=== PATIENT | male | born 1960 | race African-American/Black ===

== ENCOUNTER 2018-08-18 18:38 | Emergency (ER) | payer OTHER ==
[~2018-08-18] VITALS: Ht 188 cm; Wt 99.8 kg
[~2018-08-18 18:38] MED LIST: ALBUPOW26; CARI-277 OR; HYDR-4683 GT
[2018-08-18 20:23] LABS: Urine Bacteria NONE SEEN /hpf (None Seen); Urine Blood 2+ /uL (Negative); Urine Specific Gravity 1.022 (1.001-1.035); Urine WBC 285 /hpf (0 - 3); Urine WBC Clumps PRESENT /hpf (None Seen)
[2018-08-18 22:00] LABS: Basophils # (auto) 0 uL; Basophils % (auto) 0.2 % (0.0-2.0); Eosinophils # (auto) 0.1 uL; Eosinophils % (auto) 0.9 % (0.0-7.0); Hematocrit 38.4 % (41.0-53.0); Hemoglobin 12.5 g/dL (13.5-17.5); Lymphocytes # (auto) 1.3 uL; Lymphocytes % (auto) 12.6 % (10.0-50.0); Mean Corpuscular Hgb Conc. 32.5 g/dL (32.0-36.0); Mean Corpuscular Volume 86.2 fL (80.0-100.0); Monocytes # (auto) 0.7 uL; Monocytes % (auto) 6.4 % (0.0-12.0); Neutrophils # (auto) 8.5 uL; Neutrophils % (auto) 79.9 % (37.0-80.0); Platelet Count (auto) 213 10^3/uL (140-450); Red Blood Cells 4.45 10^6/uL (4.5-5.90); Red Cell Distribution Width 14.9 % (11.8-14.3); White Blood Cell 10.6 10^3/uL (4.4-10.8)
[2018-08-18 22:13] LABS: Potassium 3.7 mmol/L (3.5-5.1)
[2018-08-18 22:21] LABS: Albumin 3.5 g/dL (3.4-5.0); BUN/Creatinine Ratio 8.3; Bilirubin, Total 0.4 mg/dL (0.2-1.0); Calcium 8.9 mg/dL (8.5-10.1); Total Protein 8.6 g/dL (6.4-8.2)
[2018-08-19] MEDS ORDERED: CIPROFLOXACIN HCL 500 MG TAB PO ONE (02:15)
[2018-08-19 02:30] VITALS: BP 119/49
== END 2018-08-19 02:56 | disposition home or self-care (01) ==
LOC: ER 18:38
DX: N39.0 Urinary tract infection, site not specified (principal); N30.90 Cystitis, unspecified without hematuria; J45.909 Unspecified asthma, uncomplicated; I10 Essential (primary) hypertension; F17.210 Nicotine dependence, cigarettes, uncomplicated
CPT/HCPCS: 36415; 74176; 80053; 81001; 85025

== ENCOUNTER 2019-07-04 03:44 | Emergency (ER) | payer SELFPAY ==
[~2019-07-04] VITALS: Ht 188 cm; Wt 90.7 kg
[~2019-07-04 03:44] MED LIST changes: -HYDR-4683 GT; +HYDR-4833 GT
[2019-07-04 04:13] LABS: Urine Bacteria FEW /hpf (None Seen); Urine Blood 2+ /uL (Negative); Urine Mucus FEW (None Seen); Urine WBC 148 /hpf (0 - 3)
[2019-07-04 04:32] VITALS: BP 118/76
[2019-07-04] MEDS ORDERED: cefTRIAXone SOD 1,000 MG VL IM ONE (04:45)
== END 2019-07-04 05:02 | disposition home or self-care (01) ==
LOC: ER 03:46
DX: N39.0 Urinary tract infection, site not specified (principal); R30.0 Dysuria; I10 Essential (primary) hypertension; E78.5 Hyperlipidemia, unspecified; J45.909 Unspecified asthma, uncomplicated; F17.210 Nicotine dependence, cigarettes, uncomplicated; Z79.899 Other long term (current) drug therapy
CPT/HCPCS: 81001; 96372; 99283; J0696

== ENCOUNTER 2020-08-04 06:40 | Emergency (ER) | payer SELFPAY ==
[~2020-08-04] VITALS: Ht 185.4 cm; Wt 90.7 kg
[2020-08-04] MEDS ORDERED: diphenhdrAMINE HCL 25 MG CAP PO ONE (07:00)
[2020-08-04 07:46] VITALS: BP 95/68
[2020-08-04] MEDS ORDERED: methylPREDNISolone SOD SUCC 125 MG/2 ML VL IM ONE (08:45)
== END 2020-08-04 09:32 | disposition home or self-care (01) ==
LOC: ER 06:40
DX: T78.40XA Allergy, unspecified, initial encounter (principal); J45.909 Unspecified asthma, uncomplicated; I10 Essential (primary) hypertension; F17.210 Nicotine dependence, cigarettes, uncomplicated
CPT/HCPCS: 96372; 99283; J2930

== ENCOUNTER 2021-12-28 13:17 | Emergency (ER) | payer BC, MEDICAID, OTHER ==
[~2021-12-28] VITALS: Ht 185.4 cm; Wt 97.0 kg
[2021-12-28 14:10] LABS: Basophils # (auto) 0 10 ^3/uL (0-0.2); Basophils % (auto) 0.5 % (0.0-2.0); Eosinophils # (auto) 0 10 ^3/uL (0-0.8); Eosinophils % (auto) 0.7 % (0.0-7.0); Hemoglobin 12.3 g/dL (13.5-17.5); Lymphocytes # (auto) 0.9 10 ^3/uL (0.4-5.4); Lymphocytes % (auto) 14.8 % (10.0-50.0); Mean Corpuscular Hemoglobin 27.8 pg (28.0-32.0); Mean Corpuscular Hgb Conc. 32.4 g/dL (32.0-36.0); Mean Corpuscular Volume 85.9 fL (80.0-100.0); Monocytes # (auto) 0.6 10 ^3/uL (0-1.3); Monocytes % (auto) 9.5 % (0.0-12.0); Neutrophils # (auto) 4.4 10 ^3/uL (1.6-8.6); Neutrophils % (auto) 74.5 % (37.0-80.0); Nucleated Red Blood Cells % 0.1 %; Red Blood Cells 4.43 10^6/uL (4.5-5.90); Red Cell Distribution Width 14.2 % (11.8-14.3); White Blood Cell 5.9 10^3/uL (4.4-10.8)
[2021-12-28 14:21] LABS: Urine Bacteria NONE SEEN /hpf (None Seen); Urine Blood Negative /uL (Negative); Urine Mucus FEW (None Seen); Urine Specific Gravity 1.026 (1.001-1.035); Urine WBC <1 /hpf (0 - 3)
[2021-12-28 14:40] LABS: Albumin 3.5 g/dL (3.4-5.0); Calcium 9.1 mg/dL (8.5-10.1); Potassium 4.4 mmol/L (3.5-5.1)
[2021-12-28 14:41] LABS: BUN/Creatinine Ratio 9.4
[2021-12-28 14:44] LABS: Bilirubin, Total 0.3 mg/dL (0.2-1.0); Total Protein 7.8 g/dL (6.4-8.2)
[2021-12-28] MEDS ORDERED: METH4PAK PO (16:27)
[2021-12-28] MEDS ORDERED: AZIT1POW PO (16:27)
[2021-12-28 17:20] VITALS: BP 153/73
== END 2021-12-28 17:34 | disposition home or self-care (01) ==
LOC: ER 13:17
DX: J45.909 Unspecified asthma, uncomplicated (principal); E78.5 Hyperlipidemia, unspecified; I10 Essential (primary) hypertension; F17.210 Nicotine dependence, cigarettes, uncomplicated; Z20.822 Contact with and (suspected) exposure to COVID-19
CPT/HCPCS: 36415; 71045; 80053; 81001; 83880; 84484; 85025; 87426; 87804; 93005

== ENCOUNTER 2023-02-22 20:36 | Emergency (ER) | payer MEDICAID ==
[~2023-02-22] VITALS: Ht 185.4 cm; Wt 90.1 kg
[~2023-02-22 20:36] MED LIST changes: +AZIT1POW PO; +METH4PAK PO
[2023-02-22] MEDS ORDERED: ALBUTEROL SULF 2.5 MG/0.5ML(0.5%) NEB SOLN NEB ONE (21:15)
[2023-02-22] MEDS ORDERED: DexAMETHasone SOD PHOS 10MG/1ML VIAL INJ IM ONE (21:15)
[2023-02-22] MEDS ORDERED: IPRATROPIUM BROM 0.5 MG/2.5ML INH SOL NEB ONE (21:15)
[2023-02-22 21:19] LABS: Urine Bacteria NONE SEEN /hpf (None Seen); Urine Blood Negative /uL (Negative); Urine Clarity Clear (Clear); Urine Color Yellow (Yellow); Urine Protein, UAD Negative (Negative); Urine Specific Gravity 1.026 (1.001-1.035); Urine Urobilinogen Normal (Negative); Urine WBC 62 /hpf (0 - 3); Urine pH 5.5 (5.0-8.0)
[2023-02-22 21:56] VITALS: BP 136/38; PULSE 54; RESP 18; TEMP 97.4; O2SAT 96
[2023-02-22] MEDS ORDERED: ALBU108A5 IN (22:26)
[2023-02-22] MEDS ORDERED: TIOTCAP IN (22:26)
[2023-02-22] MEDS ORDERED: levoFLOXacin 250 MG TAB PO ONE (22:30)
[2023-02-22] MEDS ORDERED: LEVO750T8 PO (22:42)
== END 2023-02-22 23:07 | disposition home or self-care (01) ==
LOC: ER 20:36
DX: N39.0 Urinary tract infection, site not specified (principal); J98.4 Other disorders of lung; I10 Essential (primary) hypertension; E78.5 Hyperlipidemia, unspecified; J45.909 Unspecified asthma, uncomplicated; F17.210 Nicotine dependence, cigarettes, uncomplicated; R07.89 Other chest pain
CPT/HCPCS: 71046; 81001; 94640; 96372; 99284; J1100; J7644

== ENCOUNTER 2023-06-22 10:53 | Emergency (ER) | payer MEDICAID ==
[~2023-06-22] VITALS: Ht 185.4 cm; Wt 88.9 kg
[~2023-06-22 10:53] MED LIST changes: +ALBU108A5 IN; +LEVO750T8 PO; +TIOTCAP IN
[2023-06-22 12:09] VITALS: BP 138/61; PULSE 60; RESP 18; TEMP 98; O2SAT 97
[2023-06-22] MEDS: HYDROcodone-ACET 5/325MG TAB PO ONE (12:54)
[2023-06-22] MEDS ORDERED: BACL10TA PO (13:20)
[2023-06-22] MEDS ORDERED: IBUP-1456 PO (13:20)
== END 2023-06-22 13:24 | disposition home or self-care (01) ==
LOC: ER 10:53
DX: S46.912A Strain of unspecified muscle, fascia and tendon at shoulder and upper arm level, left arm, initial encounter (principal); S76.012A Strain of muscle, fascia and tendon of left hip, initial encounter; S00.03XA Contusion of scalp, initial encounter; J45.909 Unspecified asthma, uncomplicated; E78.5 Hyperlipidemia, unspecified; I10 Essential (primary) hypertension; F17.210 Nicotine dependence, cigarettes, uncomplicated; W18.09XA Striking against other object with subsequent fall, initial encounter; Y93.89 Activity, other specified; Y92.89 Other specified places as the place of occurrence of the external cause; Y99.8 Other external cause status
CPT/HCPCS: 70450; 73030; 73502

== ENCOUNTER 2024-12-20 10:22 | Inpatient (IN) | payer MEDICARE, MEDICAID ==
[~2024-12-20] VITALS: Ht 188 cm; Wt 91.4 kg
[~2024-12-20 10:22] MED LIST changes: +BACL10TA PO; +IBUP-1456 PO
[2024-12-20 10:35] VITALS: PULSE 41; RESP 14; O2SAT 100
--- NOTE | 2024-12-20 10:44 | ED.PDOC ---
History of Present Illness HPI Comments 64 y/o M is BIBA for c/c of arrhythmia. Per EMS personnel report, patient's primary care physician office called after finding the patient bradycardic in the 30's range during a prescription albuterol inhaler refill inquiry visit after seeing his dentist, earlier, today. Patient is asymptomatic. He comments on having only dental fillings done on him at aforementioned dental visit. Only significant history for asthma and paternal family history of emphysema and maternal family history of heart disease. No endorsed recent ailments, injuries, sick contacts, substance use, or further pertinent events or history. Time Seen by MD: 10:20 Primary Care Provider: "[facility]" Reviewed Notes: Nurses Notes, High Wire Artist Notes, Medications, Allergies Allergies: Coded Allergies: NO KNOWN ALLERGIES (Unverified , 10/24/10) Home Meds Active Scripts Baclofen (Baclofen) 10 Mg Tab, 10 MG PO BID, #20 TAB Prov:JOHNATHAN SANDERS 06/22/23 Ibuprofen (Ibuprofen) 800 Mg Tab, 1 TAB PO TID, #30 TAB Prov:JOHNATHAN SANDERS 06/22/23 Levofloxacin (Levaquin 750 mg) 750 Mg Tab, 1 TAB PO DAILY for 9 Days, #9 TAB Prov:WILLIE GARRETT PAC 02/22/23 Tiotropium [place] Monohydrate (Spiriva Handihaler) 18 Mcg Cap, 18 MCG IN DAILY, #1 CAP Prov:WILLIE GARRETT PAC 02/22/23 Albuterol Sulfate (Albuterol Sulfate Hfa) 108 Mcg/Act Aer, 108 MCG IN Q4HP PRN, #1 AER Prov:WILLIE GARRETT PAC 02/22/23 Methylprednisolone (Medrol Dosepak) 4 Mg Rush, 4 MG PO UD, #21 TAB UAD Prov:DANIS ANGLIN MD 12/28/21 Azithromycin (Zithromax) 1 Gm Pow, 1 PACK PO ONCE, #1 PACK Prov:DANIS ANGLIN MD 12/28/21 Reported Medications Albuterol (Albuterol) Pow, Q6HR 2 PUFF 03/19/12 Carisoprodol (Soma) 350 Mg Tab, 350 OR 07/24/11 Hydrocodone-Acetaminophen ([place] 5/325MG) 1 Tab Tb, 1 TAB GT 07/24/11 Information Source: Patient, Emergency Med Personnel Mode of Arrival: EMS Severity: Moderate Timing: Hours Duration: Since onset Prehospital treatment: 12 Lead EKG, Cardiac Cath Lab Radiology Technologist Medication Refill: Ran out of Medication (Albuterol ) Past Medical History PAST MEDICAL HISTORY: Asthma Surgical History: Denies all surgeries Family History Family History: Reviewed,noncontributory to illness, No family hx of Cancer, No family hx of DM, No family hx of HTN, No family hx ofKidney ole, No family hx of Liver ole, No family hx of Stroke, Family hx of heart ole, Family hx of lung ole (emphysema) Social History Smoker: Non-Smoker Alcohol: Occasionally Drugs: Denies Drug Use Lives In: Home Constitutional: denies: chills, diaphoresis, fatigue, fever, malaise, sweats, weakness, others EENTM: denies: blurred vision, double vision, ear bleeding, ear discharge, ear drainage, ear pain, ear ringing, eye pain, eye redness, hearing loss, mouth pain, mouth swelling, nasal discharge, nose bleeding, nose congestion, nose pain, photophobia, tearing, throat pain, throat swelling, voice changes, others Respiratory: denies: cough, hemoptysis, orthopnea, SOB at rest, shortness of breath, SOB with excertion, stridor, wheezing, others Cardiovascular: denies: chest pain, dizzy spells, diaphoresis, Dyspnea on exertion, edema, irregular heart beat, left arm pain, lightheadedness, palpitations, PND, syncope, others Gastrointestinal: denies: abdomen distended, abdominal pain, blood streaked bowels, constipated, diarrhea, dysphagia, difficulty swallowing, hematemesis, melena, nausea, poor appetite, poor fluid intake, rectal bleeding, rectal pain, vomiting, others Genitourinary: denies: burning, dysuria, flank pain, frequency, hematuria, incontinence, penile discharge, penile sore, pain, testicle pain, testicle swelling, urgency, others Neurological: denies: dizziness, fainting, headache, left sided numbness, left sided weakness, numbness, paresthesia, pre-existing deficit, right sided numbness, right sided weakness, seizure, speech problems, tingling, tremors, weakness, others Musculoskeletal: denies: back pain, gout, joint pain, joint swelling, muscle pain, muscle stiffness, neck pain, others Integumetry: denies: bruises, change in color, change in hair/nails, dryness, laceration, lesions, lumps, rash, wounds, others Allergic/Immunocompromised: denies: Difficulty Healing, Frequent Infections, Hives, Itching, others Hematologic/Lymphatic: denies: anemia, blood clots, easy bleeding, easy bruising, swollen glands, others Endocrine: denies: excessive hunger, excessive sweating, excessive thirst, excessive urination, flushing, intolerance to cold, intolerance to heat, unexplained weight gain, unexplained weight loss, others Psychiatric: denies: anxiety, bipolar disorder, depression, hopeless, panic disorder, schizophrenia, sleepless, suicidal, others All Other Systems: Reviewed and Negative (unless stated in HPI) Physical Exam General Appearance: Mild Distress HEENT: Normal ENT Inspection, Pharynx Normal, TMs Normal Neck: Full Range of Motion, Non-Tender, Normal, Normal Inspection Respiratory: Chest Non-Tender, Lungs Clear, No Accessory Muscle Use, No Respiratory Distress, Normal Breath Sounds Cardiovascular: Bradycardia, No Edema, No JVD, No Murmur, No Gallop Breast Exam: Deferred Gastrointestinal: No Organomegaly, Non Tender, No Pulsatile Mass, Normal Bowel Sounds, Soft Genitalia: Deferred Pelvic: Deferred Rectal: Deferred Extremities: No calf tenderness, Normal capillary refill, Normal inspection, Normal range of motion, Non-tender, No pedal edema Musculoskeletal : Apperance: Normal Neurologic: Alert, tumbler tender II-XII nml as Tested, No Motor Deficits, Normal Affect, Normal Mood, No Sensory Deficits Cerebellar Function: Normal Reflexes: Normal Skin: Dry, Normal Color, Warm Lymphatic: No Adenopathy Was a procedure done? Was a procedure done?: No EKG EKG : Pulse Rate (adult): 41 [place]: Normal Cardiac Rhythm: SB Block: None Hypertrophy: None ST: Normal Differential Dx Considerations may include: bradycardia, arrhythmia, dehydration, electrolyte imbalance, acute heart failure, among others X-Ray, Labs, Meds, VS Vital Signs Date Time Temp Pulse Resp B/P (MAP) Pulse Ox O2 Delivery O2 Flow Rate FiO2 12/20/24 10:44 41 12/20/24 10:35 41 14 100 Room Air* 0 21 12/20/24 10:35 97.8 41 14 126/48 (74) 100 97.8 12/20/24 10:29 41 12/20/24 10:23 97.3 41 16 128/81 99 97.3 Lab Test 12/20/24 11:03 Range/Units White Blood Count 7.2 4.4-10.8 10^3/uL Red Blood Count 4.43 L 4.5-5.90 10^6/uL Hemoglobin 12.7 L 13.5-17.5 g/dL Hematocrit 39.0 L 41.0-53.0 % Mean Corpuscular Volume 88.0 80.0-100.0 fL Mean Corpuscular Hemoglobin 28.7 28.0-32.0 pg Mean Corpuscular Hemoglobin Concent 32.6 32.0-36.0 g/dL Red Cell Distribution Width 15.2 H 11.8-14.3 % Platelet Count 204 140-450 10^3/uL Mean Platelet Volume 8.1 6.9-10.8 fL Neutrophils (%) (Auto) 59.5 37.0-80.0 % Lymphocytes (%) (Auto) 30.0 10.0-50.0 % Monocytes (%) (Auto) 6.9 0.0-12.0 % Eosinophils (%) (Auto) 3.2 0.0-7.0 % Basophils (%) (Auto) 0.4 0.0-2.0 % Neutrophils # (Auto) 4.3 1.6-8.6 10 ^3/uL Lymphocytes # (Auto) 2.1 0.4-5.4 10 ^3/uL Monocytes # (Auto) 0.5 0-1.3 10 ^3/uL Eosinophils # (Auto) 0.2 0-0.8 10 ^3/uL Basophils # (Auto) 0 0-0.2 10 ^3/uL Nucleated Red Blood Cells 0.2 % Sodium Level 143 136-145 mmol/L Potassium Level 3.9 3.5-5.1 mmol/L Chloride Level 109 H 98-107 mmol/L Carbon Dioxide Level 26 20-31 mmol/L Anion Gap 8 5-15 Blood Urea Nitrogen 6 L 9-23 mg/dL Creatinine 0.84 0.700-1.30 mg/dL Glomerular Filtration Rate Calc 97 >90 mL/min BUN/Creatinine Ratio 7.1 L 10.0-20.0 Serum Glucose 95 74-106 mg/dL Calcium Level 9.3 8.7-10.4 mg/dL Magnesium Level 1.9 1.6-2.6 mg/dL Troponin I High Sensitivity 3 L </=54 ng/L EXAM: XY CHEST PORTABLE IMPRESSION: No acute cardiopulmonary disease. The patient's CBC is within normal limits The chemistry panel is within normal limits. IV Hep-Lock was established. The patient has consistently stayed bradycardic The patient is being admitted to the hospitalist at this time Images Reviewed?: Images reviewed and evaluated by me Time of 1ST Reevaluation: 10:50 Reevaluation 1ST: Unchanged Patient Education/Counseling: Diagnosis, Treatment, Prognosis Family Education/Counseling: No Family Present SEPSIS Sepsis Screen Physician Orders Electrocardigram (12/20/24 10:27) Chest Portable (12/20/24 10:31) Heplock Iv (12/20/24 10:31) Cardiac Cath Lab Radiology Technologist (12/20/24 10:31) Blood Pressure (12/20/24 10:31) Pulse Oximetry (12/20/24 10:31) Vital Signs Date Time Temp Pulse Resp B/P (MAP) Pulse Ox O2 Delivery O2 Flow Rate FiO2 12/20/24 10:44 41 12/20/24 10:35 41 14 100 Room Air* 0 21 12/20/24 10:35 97.8 41 14 126/48 (74) 100 97.8 12/20/24 10:29 41 12/20/24 10:23 97.3 41 16 128/81 99 97.3 Laboratory Tests Test 12/20/24 11:03 White Blood Count 7.2 10^3/uL (4.4-10.8) Departure 1 Departure Time of Disposition: 11:59 Impression: Primary Impression: Sinus bradycardia Additional Impression: Generalized weakness Disposition: 09 ADMITTED INPATIENT Admit to: Tele Condition: Fair Critical Care Note Critical Care Time?: Yes (45 min-critical care time only) Stability Stability form required: Yes Unstable for transfer: Telemetry monitoring (Telemetry monitoring required), ED Physician Assesment (Clinical assesment) Heart Score Heart Score: Heart Score Response (Comments) Value History Slightly Suspicious 0 EKG Normal 0 Age >65 2 Risk Factors 1 or 2 risk factors 1 Troponin Normal limit 0 Total 3 I personally scribed for DANIS ANGLIN MD ([email or web address]) on 12/20/24 at 10:44. Electronically submitted by Dejan Lauren ([email or web address]). I personally scribed for DANIS ANGLIN MD ([email or web address]) on 12/20/24 at 11:12. Electronically submitted by Thu Hardwick ([facility]). I personally scribed for DANIS ANGLIN MD ([email or web address]) on 12/20/24 at 11:18. Electronically submitted by Dejan Lauren ([email or web address]). DANIS ANGLIN MD Dec 20, 2024 10:44
--- NOTE | 2024-12-20 11:10 | DVH ---
EXAM: XY CHEST PORTABLE Indication: Bradycardia Technique: Single frontal view of the chest was obtained Comparison: XY CHEST TWO VIEWS ROUTINE on DOS: 02/22/23, CHEST PORTABLE on DOS: 12/28/21, CXRP on DOS: 12/28/21 FINDINGS: Lines and Tubes: None Lungs: No focal consolidation. Pleura: No effusion. No pneumothorax. Cardiomediastinal contours: Unremarkable. Atherosclerotic vascular calcifications of the thoracic aorta are noted. Bones: No acute osseous abnormality. IMPRESSION: No acute cardiopulmonary disease.
[2024-12-20 11:24] LABS: Hematocrit 39.0 % (41.0-53.0); Hemoglobin 12.7 g/dL (13.5-17.5); Mean Corpuscular Hemoglobin 28.7 pg (28.0-32.0); Mean Corpuscular Volume 88.0 fL (80.0-100.0); Nucleated Red Blood Cells % 0.2 %
[2024-12-20 11:34] LABS: Potassium 3.9 mmol/L (3.5-5.1); Sodium 143 mmol/L (136-145)
[2024-12-20 11:35] LABS: Anion Gap 8 (5-15); Calcium 9.3 mg/dL (8.7-10.4); Carbon Dioxide 26 mmol/L (20-31); Chloride 109 mmol/L (98-107)
[2024-12-20 11:40] LABS: BUN/Creatinine Ratio 7.1 (10.0-20.0); Glucose 95 mg/dL (74-106)
[2024-12-20 11:41] LABS: Magnesium 1.9 mg/dL (1.6-2.6)
[2024-12-20 11:42] LABS: Blood Urea Nitrogen 6 mg/dL (9-23)
[2024-12-20] MEDS: ALBUTEROL SULF 2.5 MG/0.5ML(0.5%) NEB SOLN HHN ONE (12:36)
[2024-12-20] MEDS: IPRATROPIUM BROM 0.5 MG/2.5ML INH SOL HHN ONE (12:36)
[2024-12-20] MEDS ORDERED: NITROGLYCERIN 0.4 MG SL TAB SL PRN (12:45)
[2024-12-20] MEDS ORDERED: MORPHINE SULFATE INJ 2 MG/ml SYRG IV PRN (12:45)
[2024-12-20 13:43] LABS: Base Excess 1.4 mmol/L (-2.0-3.0)
[2024-12-20] MEDS: ATROPINE SULF 1 MG/10ml SYR IV ONE (14:55)
--- NOTE | 2024-12-20 18:10 | DVHHPRES ---
History of Present Illness Resident Creating Document: MARÍA SOTO RESIDENT History of Present Illness ALYSSA CARDENAS JR, a 64-year-old male was brought in by EMS for evaluation of bradycardia noted during a routine visit to his primary care office for an albuterol refill after a dental appointment earlier today. Patient was found to have heart rates in the 30s but occasional dizziness noted. He reports only having dental fillings done at the dentist and denies recent illness, injuries, substance use, or other pertinent events. Past medical history includes asthma; surgical history negative. Family history notable for maternal heart disease and paternal emphysema. Social history: non-smoker, regular moderate to heavy alcohol use, denies drug use, lives at home. PMHx: Asthma/COPD PSHx: Denies all surgeries Family history: Reviewed, noncontributory to illness Social History: Patient is a non-smoker, drinks alcohol occasionally, denies illicit drug use, and lives at home. 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 Recent binge drinking with 10+ bottles of [employer] beer. Review of Systems Constitutional: No: Fever, Chills, Sweats, Weakness, Malaise, Other Eyes: No: Pain, Vision change, Conjunctivae inflammation, Eyelid inflammation, Other, Redness ENT: No: Ear pain, Ear discharge, Nose pain, Nose discharge, Nose congestion, Mouth pain, Mouth swelling, Throat pain, Throat swelling, Other Respiratory: No: Cough, Dry, Shortness of breath, SOB with excertion, Wheezing, Hemoptysis, Pleuritic Pain, Sputum, Wheezing, Other Cardiovascular: Palpitations; No: Chest Pain, Orthopnea, Paroxysmal Noc. Dyspnea, Edema, Lt Headedness, Other Gastrointestinal: No: Nausea, Vomiting, Abdominal Pain, Diarrhea, Constipation, Melena, Hematochezia, Other Genitourinary: No Dysuria, No Frequency, No Incontinence, No Hematuria, No Retention, No Other Musculoskeletal: No: other, neck pain, shoulder pain, arm pain, back pain, hand pain, leg pain, foot pain Skin: No: Rash, Lesions, Jaundice, Bruising, Other Neurological: Other (dizziness); No: Weakness, Numbness, Incoordination, Change in speech, Confusion, Seizures Allergies: Coded Allergies: NO KNOWN ALLERGIES (Unverified , 10/24/10) Medications Current Medications Medications Dose Ordered Sig/Dwight Route Start Time Stop Time Status Last Admin Dose Admin Nitroglycerin 0.4 mg Q5MINP PRN SL 12/20/24 12:45 Morphine Sulfate 2 mg Q30M PRN IV 12/20/24 12:45 Exam Vital Signs Vital Signs Date Time Temp Pulse Resp B/P (MAP) Pulse Ox O2 Delivery O2 Flow Rate FiO2 12/20/24 16:00 45 12/20/24 12:36 14 Room Air* 0 21 12/20/24 12:30 138/49 (78) 98 12/20/24 10:35 97.8 97.8 General Appearance: Alert, Oriented X3, Cooperative, mild distress HEENT: Atraumatic, PERRLA, EOMI, Mucous membr. moist/pink Respiratory: Clear to auscultation, Normal air movement, Other (in room air) Cardiovascular: Normal S1, Normal S2, No murmurs, Other (Slower heart rate between 40s and 50s at the time of evaluation asymptomatic.) Abdominal: Normal bowel sounds, Soft, No tenderness, No hepatospenomegaly, No masses Extremities: No clubbing, No cyanosis, No edema, Normal pulses, No tenderness/swelling Skin: No rashes, No breakdown, No significant lesion Neuro: Normal gait, Normal speech, Strength at 5/5 X4 ext, Normal tone, Sensation intact, Cranial nerves 3-12 NL, Reflexes 2+ Psych/Mental Status: Mental status NL, Mood NL Labs/Xrays Labs Test 12/20/24 13:39 12/20/24 11:03 Range/Units Blood Gas Specimen Type Arterial Blood Gas Sample Site Right radial Blood Gas Patient Temperature 37.0 Arterial Blood Date Drawn [id number] Arterial Blood pH 7.428 7.350-7.450 Arterial Blood Partial Pressure CO2 39.9 35.0-48.0 mmHg Arterial Blood Partial Pressure O2 70.8 L 83.0-108.0 mmHg Arterial Blood HCO3 25.8 21.0-28.0 mmol/L Arterial Blood Oxygen Saturation 93.6 L 94.0-98.0 % Arterial Blood Base Excess 1.4 -2.0-3.0 mmol/L Arterial Blood Oxyhemoglobin 92.3 L 94.0-98.0 % Arterial Blood Carboxyhemoglobin 0.8 0.5-1.5 % Arterial Blood Methemoglobin 0.6 0.0-1.5 % Ruben Test Yes Blood Gas Total Hemoglobin 13.40 L 13.5-17.5 g/dL Blood Gas Modality Room air FiO2 % 21.0 White Blood Count 7.2 4.4-10.8 10^3/uL Red Blood Count 4.43 L 4.5-5.90 10^6/uL Hemoglobin 12.7 L 13.5-17.5 g/dL Hematocrit 39.0 L 41.0-53.0 % Mean Corpuscular Volume 88.0 80.0-100.0 fL Mean Corpuscular Hemoglobin 28.7 28.0-32.0 pg Mean Corpuscular Hemoglobin Concent 32.6 32.0-36.0 g/dL Red Cell Distribution Width 15.2 H 11.8-14.3 % Platelet Count 204 140-450 10^3/uL Mean Platelet Volume 8.1 6.9-10.8 fL Neutrophils (%) (Auto) 59.5 37.0-80.0 % Lymphocytes (%) (Auto) 30.0 10.0-50.0 % Monocytes (%) (Auto) 6.9 0.0-12.0 % Eosinophils (%) (Auto) 3.2 0.0-7.0 % Basophils (%) (Auto) 0.4 0.0-2.0 % Neutrophils # (Auto) 4.3 1.6-8.6 10 ^3/uL Lymphocytes # (Auto) 2.1 0.4-5.4 10 ^3/uL Monocytes # (Auto) 0.5 0-1.3 10 ^3/uL Eosinophils # (Auto) 0.2 0-0.8 10 ^3/uL Basophils # (Auto) 0 0-0.2 10 ^3/uL Nucleated Red Blood Cells 0.2 % D-Dimer, Quantitative 0.37 0.0-0.49 mg/L FEU Sodium Level 143 136-145 mmol/L Potassium Level 3.9 3.5-5.1 mmol/L Chloride Level 109 H 98-107 mmol/L Carbon Dioxide Level 26 20-31 mmol/L Anion Gap 8 5-15 Blood Urea Nitrogen 6 L 9-23 mg/dL Creatinine 0.84 0.700-1.30 mg/dL Glomerular Filtration Rate Calc 97 >90 mL/min BUN/Creatinine Ratio 7.1 L 10.0-20.0 Serum Glucose 95 74-106 mg/dL Calcium Level 9.3 8.7-10.4 mg/dL Magnesium Level 1.9 1.6-2.6 mg/dL Troponin I High Sensitivity 3 L </=54 ng/L B-Type Natriuretic Peptide 32.86 0-100 pg/mL Thyroid Stimulating Hormone (TSH) 1.18 0.55-4.78 uIU/mL SEPSIS Sepsis Screen Date sepsis recognized/suspect: Dec 20, 2024 Time Sepsis recognized/suspect: 1034 Recent Procedure: Yes (DENTAL (CAVITY) 12/20/24) On Antibiotic Therapy: No Respiratory Rate >20: No Heart Rate >90: No Temp<36 C (96.8 F) or >38.3 C: No SBP <90 or MAP <65 mmHG: No New Acute Mental Status Change: No Is the patient on CPAP, BIPAP,: No Physician Orders Electrocardigram (12/20/24 10:27) Chest Portable (12/20/24 10:31) Heplock Iv (12/20/24 10:31) Security Intelligence Analyst (12/20/24 10:31) Blood Pressure (12/20/24 10:31) Pulse Oximetry (12/20/24 10:31) Med Neb Initial Treatment (12/20/24 12:23) Admit (12/20/24 12:37) Nitroglycerin Sublingual (Ntrostat Subli (12/20/24 12:45) Morphine Sulfate Injection (12/20/24 12:45) Oxygen By Nasal Cannula (12/20/24 12:37) Stat Ekg For Chest Pain (12/20/24 12:37) Notify Md Of Changes From Base (12/20/24 12:37) Staff Electronic Warfare Officer For 24 Hours (12/20/24 12:37) Emergency Dysrhythmia Protocol (12/20/24 12:37) Rhythm Strips Once Every Shift (12/20/24 12:37) Abg W/ Co-Ox (12/20/24 13:30) Covid19 Antigen Shelli (12/20/24 ) Rapid Influenza A&B (12/20/24 13:30) Urinalysis (12/20/24 13:31) Drug Screen (12/20/24 13:31) Electrocardigram (12/20/24 13:31) Urine Bacterial Culture (12/20/24 17:07) Blood Culture (12/20/24 17:07) Vital Signs Date Time Temp Pulse Resp B/P (MAP) Pulse Ox O2 Delivery O2 Flow Rate FiO2 12/20/24 16:00 45 12/20/24 12:36 14 Room Air* 0 21 12/20/24 12:30 44 11 138/49 (78) 98 12/20/24 12:00 41 12/20/24 12:00 47 11 139/74 (95) 98 12/20/24 11:30 39 20 139/61 (87) 99 12/20/24 11:00 42 16 129/65 (86) 94 12/20/24 10:44 41 12/20/24 10:35 41 14 100 Room Air* 0 21 12/20/24 10:35 97.8 41 14 126/48 (74) 100 97.8 12/20/24 10:29 41 12/20/24 10:23 97.3 41 16 128/81 99 97.3 Laboratory Tests Test 12/20/24 11:03 White Blood Count 7.2 10^3/uL (4.4-10.8) Medications Medications Dose Ordered Sig/Dwight Route Start Time Stop Time Status Last Admin Dose Admin Albuterol 5 mg ONCE ONCE [facility] 12/20/24 12:30 12/20/24 12:31 DC 12/20/24 12:36 5 MG Ipratropium [place] 1 mg ONCE ONCE [facility] 12/20/24 12:30 12/20/24 12:31 DC 12/20/24 12:36 1 MG Assessment/Plan Assessment/Plan #Symptomatic bradycardia: Lowest heart rate in 38, patient has dizziness, presyncope, no proper syncopal episode, overall hemodynamically stable, blood pressure within normal limit. Denies any intake of substances, gay blockers. If needed IV atropine, telemetry monitoring, check TSH, cardiology consult, echo to check, if the heart rate remains below 40s or sinus pauses needs external pacer, temporarily IV drip dopamine can be used for bridging purposes. Ruled out sinus arrhythmia , sick sinus syndrome, high-degree heart block. Troponin unremarkable, BNP unremarkable. #seasonal allergy: On Claritin 10 mg daily, to continue along with montelukast 10 mg daily #presyncopal episode: Recently during the doctor's visits patient felt ligh theaded and about to pass out, at the time heart rate was in 30s, fall precautions, close monitoring, rule out structural heart disease, orthostatic vitals to check. gentle hydration to continue. #asthma/COPD: Baseline on QVAR Redi Haler, needed rescue with albuterol, recent exacerbation outpatient posey received prednisone tablets, in room air, no wheezing or respiratory distress noted. Rule out viral URI panel. #Chronic heavy alcohol abuser: Check for echo, rule out alcoholic heart disease, dilated cardiomyopathy, recent binge drinking, if signs of vegetation, CIWA protocol to follow. PUD prophylaxis: protonix 40mg/not needed DVT prophylaxis: Levonox 40mg/SCD/brisk movement. Barriers to discharge: Medical diagnosis and management in progress. Patient lives with family. Independent for ADL. PCP: [facility] Specialist Relevant To Admission: cardiology, to check for the need of permanent pacemaker. Does not have established instrumentation technician. Case discussed with Dr. Huitron. Code Status: Full Code. Discussion needed total 39 minutes bedside. Plan discussed with: Patient My Orders Orders - MARÍA SOTO RESIDENT Procedure Category Date Status Time Admit ADMIT 12/20/24 Transmitted 12:37 Nitroglycerin PHA 12/20/24 In Process Sublingual (Ntrostat 12:45 Morphine Sulfate PHA 12/20/24 In Process Injection 12:45 Oxygen By Nasal RT 12/20/24 Transmitted Cannula 12:37 Stat Ekg For Chest [facility] 12/20/24 In Process Pain 12:37 Notify Md Of Changes [facility] 12/20/24 In Process From Base 12:37 Staff Electronic Warfare Officer For [facility] 12/20/24 In Process 24 Hours 12:37 Emergency Dysrhythmia [facility] 12/20/24 In Process Protocol 12:37 Rhythm Strips Once [facility] 12/20/24 In Process Every Shift 12:37 Abg W/ Co-Ox RT 12/20/24 Logged 13:30 Covid19 Antigen [facility] 12/20/24 Logged Rapid Influenza A&B LAB 12/20/24 Logged 13:30 Urinalysis LAB 12/20/24 Logged 13:31 Drug Screen LAB 12/20/24 Logged 13:31 Electrocardigram EKG 12/20/24 Logged 13:31 Urine Bacterial COLIN 12/20/24 Logged Culture 17:07 Blood Culture COLIN 12/20/24 Logged 17:07 Date of Service: Dec 20, 2024 Billing Provider: BECKIE HUITRON MD Common Visit Codes: [id number] INP/OBS CARE (HIGH) Secondary Visit Codes: [id number] CARE PLAN 30 MINUTES MARÍA SOTO RESIDENT Dec 20, 2024 18:10
[2024-12-20 18:55] LABS: COVID19 ANTIGEN SOFIA FIA NEGATIVE (NEGATIVE)
[2024-12-20 19:25] VITALS: PULSE 50; RESP 13; O2SAT 96
[2024-12-20 22:00] VITALS: BP 139/71; PULSE 46; RESP 18; TEMP 98.3; O2SAT 97
[2024-12-20 22:03] VITALS: PULSE 54; RESP 16; O2SAT 98
[2024-12-20 22:09] LABS: Urine Protein, UAD Negative (Negative)
[2024-12-20 22:14] LABS: Phencyclidine Screen, Urine Neg (NEGATIVE)
[2024-12-20 22:16] LABS: Amphetamine Screen, Urine Neg (NEGATIVE); Barbiturate Scree,Urine Neg (NEGATIVE); Benzodiazephine Screen, Urine Neg (NEGATIVE); Cocaine Screen, Urine Pos (NEGATIVE); Opiate Scree,Urine Neg (NEGATIVE)
[2024-12-20 22:17] LABS: Cannabinoid Screen, Urine Neg (NEGATIVE)
[2024-12-20 22:43] VITALS: BP 139/71; PULSE 46; RESP 18; TEMP 98.3; O2SAT 99
[2024-12-20] MEDS: PANTOPRAZOLE 40 MG/10 ML VIAL INJ IV ONE (22:44)
[2024-12-21] VITALS (15 sets, daily range): BP systolic 116–151; BP diastolic 61–83; PULSE 41–60; RESP 14–20; TEMP 97.6–98.1; O2SAT 94–100
[2024-12-21] MEDS: guaiFENesin-DM 100/10mg/5ml SYR PO ONE (00:34)
[2024-12-21] MEDS: ALBUTEROL SULF 2.5 MG/0.5ML(0.5%) NEB SOLN NEB PRN (00:35)
[2024-12-21] MEDS ORDERED: ALBUTEROL SULF 2.5 MG/0.5ML(0.5%) NEB SOLN NEB SCH (06:00)
[2024-12-21 06:30] LABS: Hematocrit 37.5 % (41.0-53.0); Hemoglobin 12.4 g/dL (13.5-17.5); Mean Corpuscular Hemoglobin 29.1 pg (28.0-32.0); Mean Corpuscular Volume 88.1 fL (80.0-100.0); Nucleated Red Blood Cells % 0.0 %
[2024-12-21 06:46] LABS: Alanine Aminotransferase 19 U/L (7-40); Albumin 3.6 g/dL (3.2-4.8); Alkaline Phosphatase 77 U/L (46-116); Anion Gap 10 (5-15); BUN/Creatinine Ratio 9.0 (10.0-20.0); Bilirubin, Total 0.3 mg/dL (0.2-1.0); Blood Urea Nitrogen 8 mg/dL (9-23); Calcium 8.7 mg/dL (8.7-10.4); Carbon Dioxide 27 mmol/L (20-31); Chloride 107 mmol/L (98-107); Glucose 94 mg/dL (74-106); Potassium 3.6 mmol/L (3.5-5.1); Sodium 144 mmol/L (136-145); Total Protein 6.6 g/dL (5.7-8.2)
[2024-12-21] MEDS: PANTOPRAZOLE 40 MG/10 ML VIAL INJ IV SCH (09:47)
--- NOTE | 2024-12-21 13:35 | DVHINCON2 ---
Date Seen: Dec 21, 2024 Referring Physician Odilon Reason for Consultation Bradycardia History of Present Illness 64-year-old male with PMH for bradycardia, asthma, COPD presents to the hospital with low heart rate. Patient states he was at his primary care facilities for albuterol refill after dental appointment and was found to have heart rate in the 30s. Patient denies any symptoms of lightheadedness syncope shortness of breath. Patient was referred to come to the hospital and therefore was brought. Patient with negative troponin. BNP 32. TSH normal. EKG reviewed and shows marked sinus bradycardia at 41 beats per minute, no acute ST and T-wave abnormality. Past Medical History As above Past Surgical History Denies previous cardiac surgeries Family History: FH: emphysema G8 FATHER Allergies: Coded Allergies: NO KNOWN ALLERGIES (Unverified , 10/24/10) Home Meds Active Scripts Tiotropium [place] Monohydrate (Spiriva Handihaler) 18 Mcg Cap, 18 MCG IN DAILY, #1 CAP Prov:WILLIE GARRETT PAC 02/22/23 Albuterol Sulfate (Albuterol Sulfate Hfa) 108 Mcg/Act Aer, 108 MCG IN Q4HP PRN, #1 AER Prov:WILLIE GARRETT PAC 02/22/23 Methylprednisolone (Medrol Dosepak) 4 Mg Rush, 4 MG PO UD, #21 TAB UAD Prov:DANIS ANGLIN MD 12/28/21 Reported Medications Albuterol (Albuterol) Pow, Q6HR 2 PUFF 03/19/12 Current Medications Current Medications Medications (Trade) Dose Ordered Sig/Dwight Route PRN Reason Start Time Stop Time Status Last Admin Pantoprazole Sodium (Protonix) 40 mg DAILY IV 12/21/24 10:00 12/21/24 09:47 Albuterol (Ventolin Medneb) 2.5 mg Q6HWA NEB 12/21/24 06:00 12/21/24 00:30 DC Albuterol (Ventolin Medneb) 2.5 mg Q4HPRN PRN NEB SHORTNESS OF BREATH 12/21/24 00:15 12/21/24 10:05 Review of Systems Constitutional: No: Fever, Chills, Sweats, Weakness, Malaise, Other Eyes: No: Pain, Vision change, Conjunctivae inflammation, Eyelid inflammation, Other, Redness ENT: No: Ear pain, Ear discharge, Nose pain, Nose discharge, Nose congestion, Mouth pain, Mouth swelling, Throat pain, Throat swelling, Other Respiratory: No: Cough, Dry, Shortness of breath, SOB with exertion, Wheezing, Hemoptysis, Pleuritic Pain, Sputum, Wheezing, Other Cardiovascular: ; No: Chest Pain Palpitations, Orthopnea, Paroxysmal Noc. Dyspnea, Edema, Lt Headedness, Other Gastrointestinal: No: Nausea, Vomiting, Abdominal Pain, Diarrhea, Constipation, Melena, Hematochezia, Other Genitourinary: No Dysuria, No Frequency, No Incontinence, No Hematuria, No Retention, No Other Musculoskeletal: neck pain; No: other, shoulder pain, arm pain, back pain, hand pain, leg pain, foot pain Skin: No: Rash, Lesions, Jaundice, Bruising, Other Neurological: Other (Dizziness, headache.); No: Weakness, Numbness, Incoordination, Change in speech, Confusion, Seizures Vital Signs Vital Signs Date Time Temp Pulse Resp B/P (MAP) Pulse Ox O2 Delivery O2 Flow Rate FiO2 12/21/24 12:34 97.6 60 16 116/67 (83) 95 97.6 12/21/24 10:08 Room Air 12/21/24 10:08 0 21 Physical Exam General appearance: Patient is well-developed, well-nourished, in no acute distress. HEENT: Exam shows: Normocephalic, atraumatic, PERRLA, EOMI Neck: Supple, no bruits Chest: Equal chest excursion bilaterally. Breath sounds normal-no rales or wheezes. Heart: Rhythm: Regular rate; bradycardia no murmur or gallop Abdomen: Exam shows: Soft, nontender, nondistended Musculoskeletal: No clubbing, no cyanosis, no lower extremity edema Dermatology: Skin warm, moist. Neurological: Exam shows: Alert and oriented x4, normal speech Available prior records, labs, EKG, rhythm strips reviewed and interpreted Labs/Diagnostic Data Labs Test 12/21/24 05:45 12/20/24 21:48 12/20/24 13:50 12/20/24 13:39 Range/Units White Blood Count 6.9 4.4-10.8 10^3/uL Red Blood Count 4.25 L 4.5-5.90 10^6/uL Hemoglobin 12.4 L 13.5-17.5 g/dL Hematocrit 37.5 L 41.0-53.0 % Mean Corpuscular Volume 88.1 80.0-100.0 fL Mean Corpuscular Hemoglobin 29.1 28.0-32.0 pg Mean Corpuscular Hemoglobin Concent 33.0 32.0-36.0 g/dL Red Cell Distribution Width 15.1 H 11.8-14.3 % Platelet Count 188 140-450 10^3/uL Mean Platelet Volume 8.2 6.9-10.8 fL Neutrophils (%) (Auto) 62.1 37.0-80.0 % Lymphocytes (%) (Auto) 28.0 10.0-50.0 % Monocytes (%) (Auto) 7.1 0.0-12.0 % Eosinophils (%) (Auto) 2.5 0.0-7.0 % Basophils (%) (Auto) 0.3 0.0-2.0 % Neutrophils # (Auto) 4.3 1.6-8.6 10 ^3/uL Lymphocytes # (Auto) 1.9 0.4-5.4 10 ^3/uL Monocytes # (Auto) 0.5 0-1.3 10 ^3/uL Eosinophils # (Auto) 0.2 0-0.8 10 ^3/uL Basophils # (Auto) 0 0-0.2 10 ^3/uL Nucleated Red Blood Cells 0.0 % Sodium Level 144 136-145 mmol/L Potassium Level 3.6 3.5-5.1 mmol/L Chloride Level 107 98-107 mmol/L Carbon Dioxide Level 27 20-31 mmol/L Anion Gap 10 5-15 Blood Urea Nitrogen 8 L 9-23 mg/dL Creatinine 0.89 0.700-1.30 mg/dL Glomerular Filtration Rate Calc 95 >90 mL/min BUN/Creatinine Ratio 9.0 L 10.0-20.0 Serum Glucose 94 74-106 mg/dL Calcium Level 8.7 8.7-10.4 mg/dL Total Bilirubin 0.3 0.2-1.0 mg/dL Aspartate Amino Transferase (AST) 12 L 13-40 U/L Alanine Aminotransferase (ALT) 19 7-40 U/L Alkaline Phosphatase 77 46-116 U/L Total Protein 6.6 5.7-8.2 g/dL Albumin 3.6 3.2-4.8 g/dL Urine Color Light-yellow Yellow Urine Clarity Clear Clear Urine pH 6.5 5.0-9.0 Urine Specific [place] 1.022 1.001-1.035 Urine Protein Negative Negative Urine Ketones Negative Negative Urine Blood Negative Negative /uL Urine Nitrite Negative Negative Urine Bilirubin Negative Negative Urine Urobilinogen Normal Negative mg/dL Urine Leukocyte Esterase Negative Negative /uL Urine RBC <1 0 - 3 /hpf Urine Microscopic WBC 0-3 /HPF Urine Squamous Epithelial Cells None seen <5 /hpf Urine Bacteria None seen None Seen /hpf Urine Glucose Normal Normal mg/dL Urine Opiates Screen Neg NEGATIVE Urine Fentanyl Screen Neg NEGATIVE Urine Barbiturates Screen Neg NEGATIVE Urine Phencyclidine Screen Neg NEGATIVE Urine Amphetamines Screen Neg NEGATIVE Urine Benzodiazepines Screen Neg NEGATIVE Urine Cocaine Screen Pos NEGATIVE Urine Cannabinoids Screen Neg NEGATIVE Influenza Type A Antigen Negative Negative Influenza Type B Antigen Negative Negative SARS-CoV-2 Antigen (Rapid) Negative NEGATIVE Blood Gas Specimen Type Arterial Blood Gas Sample Site Right radial Blood Gas Patient Temperature 37.0 Arterial Blood Date Drawn [id number] Arterial Blood pH 7.428 7.350-7.450 Arterial Blood Partial Pressure CO2 39.9 35.0-48.0 mmHg Arterial Blood Partial Pressure O2 70.8 L 83.0-108.0 mmHg Arterial Blood HCO3 25.8 21.0-28.0 mmol/L Arterial Blood Oxygen Saturation 93.6 L 94.0-98.0 % Arterial Blood Base Excess 1.4 -2.0-3.0 mmol/L Arterial Blood Oxyhemoglobin 92.3 L 94.0-98.0 % Arterial Blood Carboxyhemoglobin 0.8 0.5-1.5 % Arterial Blood Methemoglobin 0.6 0.0-1.5 % Ruben Test Yes Blood Gas Total Hemoglobin 13.40 L 13.5-17.5 g/dL Blood Gas Modality Room air FiO2 % 21.0 Test 12/20/24 11:03 Range/Units D-Dimer, Quantitative 0.37 0.0-0.49 mg/L FEU Magnesium Level 1.9 1.6-2.6 mg/dL Troponin I High Sensitivity 3 L </=54 ng/L B-Type Natriuretic Peptide 32.86 0-100 pg/mL Thyroid Stimulating Hormone (TSH) 1.18 0.55-4.78 uIU/mL Microbiology Date/Time Source Procedure Growth Status 12/20/24 21:48 Voided Urine Urine Culture - Preliminary No growth Resulted Assessment * Marked sinus bradycardia- asymptomatic. Patient states chronic condition has been having multiple workups in the past though never had any symptoms. Patient has had exercise stress test with good chronotropic response at [facility] per patient. Patient ambulated around tele unit with heart rates sustaining in the high 60s no symptoms of shortness of breath lightheadedness chest pain. Follow up echo. * Asthma/COPD - breathing stable on room air. Management per primary team. * Chronic heavy ETOH use- check echo. Case Discussed with Dr Ramírez. Patient with multiple previous workups for bradycardia. Negative. Continue outpatient follow up. Patient made aware if becomes symptomatic the anterior comes back to the hospital though states has not had any symptoms of lightheadedness shortness of breath palpitations chest pain. Patient wants to go home. Follow up echo if no significant abnormalities stable for DC from Cardiology standpoint. Critical care, time spent: 40 minutes This medical document was created using an electronic medical record system with voice recognition software and computerized dictation system. Although this document has been carefully reviewed, there might still be some phonetic and typographical errors. Occasional wrong-word or ``sound-alike substitutions may have occurred due to the inherent limitations of voice recognition software. These areas are purely typographical due to imperfections of the software programs and do not reflect any compromise in the patient's medical care. Please read the chart carefully and recognize, using context, where these substitutions have occurred. Thank you for allowing me to participate in the management of this patient. The treatment plan was discussed with and agreed upon by patient/family including requesting consultants and ordering of imaging/procedures. Plan discussed with: Patient NYHA Physical activity limitations: NA Date of Service: Dec 21, 2024 Billing Provider: ÁNGEL LOO Cardiology Common Codes: [id number] INP/OBS CARE (High), [id number] CARE 30-74 MIN ÁNGEL LOO Dec 21, 2024 13:35
--- NOTE | 2024-12-21 13:39 | DVHPN2 ---
Reviewed: Care Plan, H&P, Labs, Medications, Previous Orders, Radiology Changes from previous H/P or p: No Changes Eyes: No Pain, No Vision change, No Conjunctivae inflammation, No Eyelid inflammation, No Other, No Redness ENT: No Ear pain, No Ear discharge, No Nose pain, No Nose discharge, No Nose congestion, No Mouth pain, No Mouth swelling, No Throat pain, No Throat swelling, No Other Cardiovascular: No Chest Pain; Palpitations; No Orthopnea, No Paroxysmal Noc. Dyspnea, No Edema, No Lt Headedness, No Other Respiratory: No Cough, No Dry, No Shortness of breath, No SOB with excertion, No Wheezing, No Hemoptysis, No Pleuritic Pain, No Sputum, No Other Gastrointestinal: No Nausea, No Vomiting, No Abdominal Pain, No Diarrhea, No Constipation, No Melena, No Hematochezia, No Other Genitourinary: No Dysuria, No Frequency, No Incontinence, No Hematuria, No Retention, No Other Musculoskeletal: No other, No neck pain, No shoulder pain, No arm pain, No back pain, No hand pain, No leg pain, No foot pain Skin: No Rash, No Lesions, No Jaundice, No Bruising, No Other Objective Vitals Vital Signs Date Time Temp Pulse Resp B/P (MAP) Pulse Ox O2 Delivery O2 Flow Rate FiO2 12/21/24 12:34 97.6 60 16 116/67 (83) 95 97.6 12/21/24 10:08 Room Air 12/21/24 10:08 0 21 Intake/Output Intake and Output 12/21/24 07:00 Intake Total 700 ml Balance 700 ml Intake Oral 700 ml # Voids 1 # Bowel Movements 1 Medications Current Medications Medications Dose Ordered Sig/Dwight Route Start Time Stop Time Status Last Admin Dose Admin Nitroglycerin 0.4 mg Q5MINP PRN SL 12/20/24 12:45 Morphine Sulfate 2 mg Q30M PRN IV 12/20/24 12:45 Pantoprazole Sodium 40 mg DAILY IV 12/21/24 10:00 12/21/24 09:47 40 MG Albuterol 2.5 mg Q4HPRN PRN NEB 12/21/24 00:15 12/21/24 10:05 2.5 MG Laboratory Results Laboratory Tests 12/21/24 05:45 Chemistry Test 12/21/24 05:45 Albumin 3.6 g/dL (3.2-4.8) Calcium Level 8.7 mg/dL (8.7-10.4) Total Protein 6.6 g/dL (5.7-8.2) LFT Test 12/21/24 05:45 Alanine Aminotransferase (ALT) 19 U/L (7-40) Alkaline Phosphatase 77 U/L (46-116) Aspartate Amino Transferase (AST) 12 U/L (13-40) L Total Bilirubin 0.3 mg/dL (0.2-1.0) Urinalysis Test 12/20/24 21:48 Urine Color Light-yellow (Yellow) Urine Clarity Clear (Clear) Urine pH 6.5 (5.0-9.0) Urine Specific [place] 1.022 (1.001-1.035) Urine Protein Negative (Negative) Urine Ketones Negative (Negative) Urine Blood Negative /uL (Negative) Urine Nitrite Negative (Negative) Urine Bilirubin Negative (Negative) Urine Urobilinogen Normal mg/dL (Negative) Urine Leukocyte Esterase Negative /uL (Negative) Urine RBC <1 /hpf (0 - 3) Urine Microscopic WBC /HPF (0-3) Urine Squamous Epithelial Cells None seen /hpf (<5) Urine Bacteria None seen /hpf (None Seen) Urine Glucose Normal mg/dL (Normal) Blood Gas Results Test 12/20/24 13:39 Arterial Blood pH 7.428 (7.350-7.450) FiO2 % 21.0 Microbiology Microbiology Date/Time Source Procedure Growth Status 12/20/24 21:48 Voided Urine Urine Culture - Preliminary No growth Resulted Labs and/or images reviewed: Labs reviewed by me, Image(s) reviewed by me Assessment/Plan Assessment/Plan Symptomatic bradycardia heart rate of 40: TSH normal Consult for Dr. 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
--- NOTE | 2024-12-21 15:49 | DVHSR ---
APPROVED REPORT EXAM: Two-dimensional and M-mode echocardiogram with Doppler and color Doppler. Blood Pressure: 138/49 mmHg INDICATION acute symtomatic bradycardia check for structural abnomals RISK FACTORS Height: 74, Weight: 190 DIMENSIONS LVDd 5.4 (3.8-5.7cm) LA (2D) 4.6 (1.9-4.0cm) Aortic Root 3.5 (2.0-3.7cm) LVDs 3.8 (2.5-4.0cm) LA (MM) (1.9-4.0cm) Aortic Cusp Exc 1.8 (1.5-2.0cm) EF (%) 55.0 (55-70%) Rt. Atrium 5.3 (1.9-4.0cm) Asc. Aorta cm IVSd 0.9 (0.7-1.1cm) RV (D) 4.7 (1.8-2.4cm) PWd 0.8 (0.7-1.1cm) Mitral Valve Mitral Mitral Stenosis E wave 0.72m/s MV Mean GR. mmHg A wave 0.75m/s MV Peak GR. 48mmHg E/A ratio 1.0 2D MVA cm2 DECEL Time 364ms PRESS 1/2 Time ms Aortic Valve Aortic Valve Aortic Stenosis V1 1.40m/s AO Mean GR. mmHg V2 1.56m/s AO Peak GR. 10mmHg LVOT Diameter 2.6 (1.8-2.4cm) Doppler THOMPSON 4.76cm2 Pulmonic Valve V2 1.18m/s Conclusion LV EF IS 65% AORTIC SCLEROSIS NORMAL MV,TV AND PV NORMAL RV FUNCTION NO EFFUSION
[2024-12-21] MEDS: MELATONIN 5 MG TAB PO ONE (21:19)
--- NOTE | 2024-12-21 22:35 | DVHINCON2 ---
Date Seen: Dec 21, 2024 Referring Physician Odilon Reason for Consultation Bradycardia History of Present Illness This is a 64-year-old male a with PMH of bradycardia, asthma, COPD presents to the hospital with low heart rate. Patient states he was at his primary care facilities for albuterol refill after dental appointment and was found to have heart rate in the 30s. Patient denies any symptoms of lightheadedness syncope shortness of breath. Patient was referred to come to the hospital and therefore was brought. Patient with negative troponin. BNP 32. TSH normal. EKG reviewed and shows marked sinus bradycardia at 41 beats per minute, no acute ST and T- wave abnormality. Chest x-ray showed NAD. Patient was admitted to the hospital. I am asked to consult on this patient. Past Medical History As above Past Surgical History Denies previous cardiac surgeries Family History: FH: emphysema G8 FATHER Allergies: Coded Allergies: NO KNOWN ALLERGIES (Unverified , 10/24/10) Home Meds Active Scripts Tiotropium [place] Monohydrate (Spiriva Handihaler) 18 Mcg Cap, 18 MCG IN DAILY, #1 CAP Prov:WILLIE GARRETT PAC 02/22/23 Albuterol Sulfate (Albuterol Sulfate Hfa) 108 Mcg/Act Aer, 108 MCG IN Q4HP PRN, #1 AER Prov:WILLIE GARRETT PAC 02/22/23 Methylprednisolone (Medrol Dosepak) 4 Mg Rush, 4 MG PO UD, #21 TAB UAD Prov:DANIS ANGLIN MD 12/28/21 Reported Medications Albuterol (Albuterol) Pow, Q6HR 2 PUFF 03/19/12 Current Medications Current Medications Medications (Trade) Dose Ordered Sig/Dwight Route PRN Reason Start Time Stop Time Status Last Admin Pantoprazole Sodium (Protonix) 40 mg DAILY IV 12/21/24 10:00 12/21/24 09:47 Albuterol (Ventolin Medneb) 2.5 mg Q6HWA NEB 12/21/24 06:00 12/21/24 00:30 DC Albuterol (Ventolin Medneb) 2.5 mg Q4HPRN PRN NEB SHORTNESS OF BREATH 12/21/24 00:15 12/21/24 10:05 Review of Systems Constitutional: No: Fever, Chills, Sweats, Weakness, Malaise, Other Eyes: No: Pain, Vision change, Conjunctivae inflammation, Eyelid inflammation, Other, Redness ENT: No: Ear pain, Ear discharge, Nose pain, Nose discharge, Nose congestion, Mouth pain, Mouth swelling, Throat pain, Throat swelling, Other Respiratory: No: Cough, Dry, Shortness of breath, SOB with exertion, Wheezing, Hemoptysis, Pleuritic Pain, Sputum, Wheezing, Other Cardiovascular: ; No: Chest Pain Palpitations, Orthopnea, Paroxysmal Noc. Dyspnea, Edema, Lt Headedness, Other Gastrointestinal: No: Nausea, Vomiting, Abdominal Pain, Diarrhea, Constipation, Melena, Hematochezia, Other Genitourinary: No Dysuria, No Frequency, No Incontinence, No Hematuria, No Retention, No Other Musculoskeletal: neck pain; No: other, shoulder pain, arm pain, back pain, hand pain, leg pain, foot pain Skin: No: Rash, Lesions, Jaundice, Bruising, Other Neurological: Other (Dizziness, headache.); No: Weakness, Numbness, Incoordination, Change in speech, Confusion, Seizures Vital Signs Vital Signs Date Time Temp Pulse Resp B/P (MAP) Pulse Ox O2 Delivery O2 Flow Rate FiO2 12/21/24 12:34 97.6 60 16 116/67 (83) 95 97.6 12/21/24 10:08 Room Air 12/21/24 10:08 0 21 Physical Exam GENERAL: Alert and oriented x 3. No acute distress. EYES: PERRL, EOMI. Anicteric. HENT: Moist mucous membranes. LUNGS: Clear to auscultation bilaterally. CARDIOVASCULAR: Regular rate and rhythm. ABDOMEN: Soft, nontender and nondistended. EXTREMITIES: No edema. NEUROLOGIC: No focal neurological deficits. SKIN: Warm, dry. Labs/Diagnostic Data Labs Test 12/21/24 05:45 12/20/24 21:48 12/20/24 13:50 12/20/24 13:39 Range/Units White Blood Count 6.9 4.4-10.8 10^3/uL Red Blood Count 4.25 L 4.5-5.90 10^6/uL Hemoglobin 12.4 L 13.5-17.5 g/dL Hematocrit 37.5 L 41.0-53.0 % Mean Corpuscular Volume 88.1 80.0-100.0 fL Mean Corpuscular Hemoglobin 29.1 28.0-32.0 pg Mean Corpuscular Hemoglobin Concent 33.0 32.0-36.0 g/dL Red Cell Distribution Width 15.1 H 11.8-14.3 % Platelet Count 188 140-450 10^3/uL Mean Platelet Volume 8.2 6.9-10.8 fL Neutrophils (%) (Auto) 62.1 37.0-80.0 % Lymphocytes (%) (Auto) 28.0 10.0-50.0 % Monocytes (%) (Auto) 7.1 0.0-12.0 % Eosinophils (%) (Auto) 2.5 0.0-7.0 % Basophils (%) (Auto) 0.3 0.0-2.0 % Neutrophils # (Auto) 4.3 1.6-8.6 10 ^3/uL Lymphocytes # (Auto) 1.9 0.4-5.4 10 ^3/uL Monocytes # (Auto) 0.5 0-1.3 10 ^3/uL Eosinophils # (Auto) 0.2 0-0.8 10 ^3/uL Basophils # (Auto) 0 0-0.2 10 ^3/uL Nucleated Red Blood Cells 0.0 % Sodium Level 144 136-145 mmol/L Potassium Level 3.6 3.5-5.1 mmol/L Chloride Level 107 98-107 mmol/L Carbon Dioxide Level 27 20-31 mmol/L Anion Gap 10 5-15 Blood Urea Nitrogen 8 L 9-23 mg/dL Creatinine 0.89 0.700-1.30 mg/dL Glomerular Filtration Rate Calc 95 >90 mL/min BUN/Creatinine Ratio 9.0 L 10.0-20.0 Serum Glucose 94 74-106 mg/dL Calcium Level 8.7 8.7-10.4 mg/dL Total Bilirubin 0.3 0.2-1.0 mg/dL Aspartate Amino Transferase (AST) 12 L 13-40 U/L Alanine Aminotransferase (ALT) 19 7-40 U/L Alkaline Phosphatase 77 46-116 U/L Total Protein 6.6 5.7-8.2 g/dL Albumin 3.6 3.2-4.8 g/dL Urine Color Light-yellow Yellow Urine Clarity Clear Clear Urine pH 6.5 5.0-9.0 Urine Specific [place] 1.022 1.001-1.035 Urine Protein Negative Negative Urine Ketones Negative Negative Urine Blood Negative Negative /uL Urine Nitrite Negative Negative Urine Bilirubin Negative Negative Urine Urobilinogen Normal Negative mg/dL Urine Leukocyte Esterase Negative Negative /uL Urine RBC <1 0 - 3 /hpf Urine Microscopic WBC 0-3 /HPF Urine Squamous Epithelial Cells None seen <5 /hpf Urine Bacteria None seen None Seen /hpf Urine Glucose Normal Normal mg/dL Urine Opiates Screen Neg NEGATIVE Urine Fentanyl Screen Neg NEGATIVE Urine Barbiturates Screen Neg NEGATIVE Urine Phencyclidine Screen Neg NEGATIVE Urine Amphetamines Screen Neg NEGATIVE Urine Benzodiazepines Screen Neg NEGATIVE Urine Cocaine Screen Pos NEGATIVE Urine Cannabinoids Screen Neg NEGATIVE Influenza Type A Antigen Negative Negative Influenza Type B Antigen Negative Negative SARS-CoV-2 Antigen (Rapid) Negative NEGATIVE Blood Gas Specimen Type Arterial Blood Gas Sample Site Right radial Blood Gas Patient Temperature 37.0 Arterial Blood Date Drawn [id number] Arterial Blood pH 7.428 7.350-7.450 Arterial Blood Partial Pressure CO2 39.9 35.0-48.0 mmHg Arterial Blood Partial Pressure O2 70.8 L 83.0-108.0 mmHg Arterial Blood HCO3 25.8 21.0-28.0 mmol/L Arterial Blood Oxygen Saturation 93.6 L 94.0-98.0 % Arterial Blood Base Excess 1.4 -2.0-3.0 mmol/L Arterial Blood Oxyhemoglobin 92.3 L 94.0-98.0 % Arterial Blood Carboxyhemoglobin 0.8 0.5-1.5 % Arterial Blood Methemoglobin 0.6 0.0-1.5 % Ruben Test Yes Blood Gas Total Hemoglobin 13.40 L 13.5-17.5 g/dL Blood Gas Modality Room air FiO2 % 21.0 Test 12/20/24 11:03 Range/Units D-Dimer, Quantitative 0.37 0.0-0.49 mg/L FEU Magnesium Level 1.9 1.6-2.6 mg/dL Troponin I High Sensitivity 3 L </=54 ng/L B-Type Natriuretic Peptide 32.86 0-100 pg/mL Thyroid Stimulating Hormone (TSH) 1.18 0.55-4.78 uIU/mL Microbiology Date/Time Source Procedure Growth Status 12/20/24 21:48 Voided Urine Urine Culture - Preliminary No growth Resulted Assessment Marked sinus bradycardia- asymptomatic. Asthma/COPD. Chronic heavy ETOH use. Plan/Recommendation I agree with your ongoing assessment and care of plan. Patient has been seen by Matt Esquivel NP on my behalf, him and I discussed the plan with the patient. Patient with multiple previous workups for bradycardia. Continue outpatient follow up. Patient made aware if becomes symptomatic the anterior comes back to the hospital though states has not had any symptoms of lightheadedness shortness of breath palpitations chest pain. Patient wants to go home. Follow up echo if no significant abnormalities stable for DC from Cardiology standpoint. Patient has had exercise stress test with good chronotropic response at [facility] per patient. Patient ambulated around tele unit with heart rates sustaining in the high 60s no symptoms of shortness of breath lightheadedness chest pain. Additional plan as per the hospital course. Plan discussed with: Patient NYHA Physical activity limitations: NA Date of Service: Dec 21, 2024 Billing Provider: JUAN LUIS CANALES MD Cardiology Common Codes: [id number] INP/OBS CARE (High), [id number] CARE 30-74 MIN JUAN LUIS CANALES MD Dec 21, 2024 14:52
[2024-12-22] VITALS (7 sets, daily range): BP systolic 129–134; BP diastolic 46–103; PULSE 40–47; RESP 18; TEMP 97.6–97.8; O2SAT 97–99
--- NOTE | 2024-12-22 08:24 | DVHPN2 ---
Reviewed: Care Plan, H&P, Labs, Medications, Previous Orders, Radiology Changes from previous H/P or p: No Changes Eyes: No Pain, No Vision change, No Conjunctivae inflammation, No Eyelid inflammation, No Other, No Redness ENT: No Ear pain, No Ear discharge, No Nose pain, No Nose discharge, No Nose congestion, No Mouth pain, No Mouth swelling, No Throat pain, No Throat swelling, No Other Cardiovascular: No Chest Pain; Palpitations; No Orthopnea, No Paroxysmal Noc. Dyspnea, No Edema, No Lt Headedness, No Other Respiratory: No Cough, No Dry, No Shortness of breath, No SOB with excertion, No Wheezing, No Hemoptysis, No Pleuritic Pain, No Sputum, No Other Gastrointestinal: No Nausea, No Vomiting, No Abdominal Pain, No Diarrhea, No Constipation, No Melena, No Hematochezia, No Other Genitourinary: No Dysuria, No Frequency, No Incontinence, No Hematuria, No Retention, No Other Musculoskeletal: No other, No neck pain, No shoulder pain, No arm pain, No back pain, No hand pain, No leg pain, No foot pain Skin: No Rash, No Lesions, No Jaundice, No Bruising, No Other Objective Vitals Vital Signs Date Time Temp Pulse Resp B/P (MAP) Pulse Ox O2 Delivery O2 Flow Rate FiO2 12/22/24 07:49 40 18 12/22/24 07:44 99 Room Air 12/22/24 07:44 0 21 12/22/24 05:00 97.6 134/79 (97) 97.6 Intake/Output Intake and Output 12/22/24 07:00 Intake Total 1400 ml Output Total 1 ml Balance 1399 ml Intake Oral 1400 ml Output Stool Total 1 ml # Voids 3 Medications Current Medications Medications Dose Ordered Sig/Dwight Route Start Time Stop Time Status Last Admin Dose Admin Nitroglycerin 0.4 mg Q5MINP PRN SL 12/20/24 12:45 Morphine Sulfate 2 mg Q30M PRN IV 12/20/24 12:45 Pantoprazole Sodium 40 mg DAILY IV 12/21/24 10:00 12/21/24 09:47 40 MG Albuterol 2.5 mg Q4HPRN PRN NEB 12/21/24 00:15 12/22/24 07:44 2.5 MG Laboratory Results Laboratory Tests 12/21/24 05:45 Urinalysis Test 12/20/24 21:48 Urine Color Light-yellow (Yellow) Urine Clarity Clear (Clear) Urine pH 6.5 (5.0-9.0) Urine Specific [place] 1.022 (1.001-1.035) Urine Protein Negative (Negative) Urine Ketones Negative (Negative) Urine Blood Negative /uL (Negative) Urine Nitrite Negative (Negative) Urine Bilirubin Negative (Negative) Urine Urobilinogen Normal mg/dL (Negative) Urine Leukocyte Esterase Negative /uL (Negative) Urine RBC <1 /hpf (0 - 3) Urine Microscopic WBC /HPF (0-3) Urine Squamous Epithelial Cells None seen /hpf (<5) Urine Bacteria None seen /hpf (None Seen) Urine Glucose Normal mg/dL (Normal) Microbiology Microbiology Date/Time Source Procedure Growth Status 12/20/24 21:48 Voided Urine Urine Culture - Preliminary No growth Resulted 12/20/24 19:16 Blood Blood Culture - Preliminary NO GROWTH AFTER 24 HOURS OF INCUBATION. Resulted Labs and/or images reviewed: Labs reviewed by me, Image(s) reviewed by me Assessment/Plan Assessment/Plan Asymptomatic bradycardia heart rate of 40: TSH normal Consult for Dr. Ramírez treated, patient has had multiple cardiac workups for bradycardia stress test at [facility] recently was negative Dr. 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
--- NOTE | 2024-12-22 08:27 | DVHDS2 ---
Discharge Summary Date of Admission Dec 20, 2024 at 12:37 Date of Discharge: Dec 22, 2024 Admitting Diagnosis Bradycardia Wounds: None Labs/Diagnostic Data: Laboratory Results Test 12/21/24 05:45 12/20/24 21:48 12/20/24 13:50 12/20/24 13:39 White Blood Count 6.9 10^3/uL (4.4-10.8) Red Blood Count 4.25 10^6/uL (4.5-5.90) Hemoglobin 12.4 g/dL (13.5-17.5) Hematocrit 37.5 % (41.0-53.0) Mean Corpuscular Volume 88.1 fL (80.0-100.0) Mean Corpuscular Hemoglobin 29.1 pg (28.0-32.0) Mean Corpuscular Hemoglobin Concent 33.0 g/dL (32.0-36.0) Red Cell Distribution Width 15.1 % (11.8-14.3) Platelet Count 188 10^3/uL (140-450) Mean Platelet Volume 8.2 fL (6.9-10.8) Neutrophils (%) (Auto) 62.1 % (37.0-80.0) Lymphocytes (%) (Auto) 28.0 % (10.0-50.0) Monocytes (%) (Auto) 7.1 % (0.0-12.0) Eosinophils (%) (Auto) 2.5 % (0.0-7.0) Basophils (%) (Auto) 0.3 % (0.0-2.0) Neutrophils # (Auto) 4.3 10 ^3/uL (1.6-8.6) Lymphocytes # (Auto) 1.9 10 ^3/uL (0.4-5.4) Monocytes # (Auto) 0.5 10 ^3/uL (0-1.3) Eosinophils # (Auto) 0.2 10 ^3/uL (0-0.8) Basophils # (Auto) 0 10 ^3/uL (0-0.2) Nucleated Red Blood Cells 0.0 % Sodium Level 144 mmol/L (136-145) Potassium Level 3.6 mmol/L (3.5-5.1) Chloride Level 107 mmol/L (98-107) Carbon Dioxide Level 27 mmol/L (20-31) Anion Gap 10 (5-15) Blood Urea Nitrogen 8 mg/dL (9-23) Creatinine 0.89 mg/dL (0.700-1.30) Glomerular Filtration Rate Calc 95 mL/min (>90) BUN/Creatinine Ratio 9.0 (10.0-20.0) Serum Glucose 94 mg/dL (74-106) Calcium Level 8.7 mg/dL (8.7-10.4) Total Bilirubin 0.3 mg/dL (0.2-1.0) Aspartate Amino Transferase (AST) 12 U/L (13-40) Alanine Aminotransferase (ALT) 19 U/L (7-40) Alkaline Phosphatase 77 U/L (46-116) Total Protein 6.6 g/dL (5.7-8.2) Albumin 3.6 g/dL (3.2-4.8) Urine Color Light-yellow (Yellow) Urine Clarity Clear (Clear) Urine pH 6.5 (5.0-9.0) Urine Specific [place] 1.022 (1.001-1.035) Urine Protein Negative (Negative) Urine Ketones Negative (Negative) Urine Blood Negative /uL (Negative) Urine Nitrite Negative (Negative) Urine Bilirubin Negative (Negative) Urine Urobilinogen Normal mg/dL (Negative) Urine Leukocyte Esterase Negative /uL (Negative) Urine RBC <1 /hpf (0 - 3) Urine Microscopic WBC /HPF (0-3) Urine Squamous Epithelial Cells None seen /hpf (<5) Urine Bacteria None seen /hpf (None Seen) Urine Glucose Normal mg/dL (Normal) Urine Opiates Screen Neg (NEGATIVE) Urine Fentanyl Screen Neg (NEGATIVE) Urine Barbiturates Screen Neg (NEGATIVE) Urine Phencyclidine Screen Neg (NEGATIVE) Urine Amphetamines Screen Neg (NEGATIVE) Urine Benzodiazepines Screen Neg (NEGATIVE) Urine Cocaine Screen Pos (NEGATIVE) Urine Cannabinoids Screen Neg (NEGATIVE) Influenza Type A Antigen Negative (Negative) Influenza Type B Antigen Negative (Negative) SARS-CoV-2 Antigen (Rapid) Negative (NEGATIVE) Blood Gas Specimen Type Arterial Blood Gas Sample Site Right radial Blood Gas Patient Temperature 37.0 Arterial Blood Date Drawn [id number] Arterial Blood pH 7.428 (7.350-7.450) Arterial Blood Partial Pressure CO2 39.9 mmHg (35.0-48.0) Arterial Blood Partial Pressure O2 70.8 mmHg (83.0-108.0) Arterial Blood HCO3 25.8 mmol/L (21.0-28.0) Arterial Blood Oxygen Saturation 93.6 % (94.0-98.0) Arterial Blood Base Excess 1.4 mmol/L (-2.0-3.0) Arterial Blood Oxyhemoglobin 92.3 % (94.0-98.0) Arterial Blood Carboxyhemoglobin 0.8 % (0.5-1.5) Arterial Blood Methemoglobin 0.6 % (0.0-1.5) Ruben Test Yes Blood Gas Total Hemoglobin 13.40 g/dL (13.5-17.5) Blood Gas Modality Room air FiO2 % 21.0 Test 12/20/24 11:03 D-Dimer, Quantitative 0.37 mg/L FEU (0.0-0.49) Magnesium Level 1.9 mg/dL (1.6-2.6) Troponin I High Sensitivity 3 ng/L (</=54) B-Type Natriuretic Peptide 32.86 pg/mL (0-100) Thyroid Stimulating Hormone (TSH) 1.18 uIU/mL (0.55-4.78) Other Laboratory Tests 12/21/24 05:45 Brief Hx & Hospital Course: 64-year-old male with a history of bradycardia with double workups in the past came in admitted for bradycardia heart rate was 40 other vital signs are normal TSH normal echo 65 percent ejection fraction seen by Cardiology Dr. Ramírez patient has had Cardiolite stress test in the [facility] recent which was negative echocardiogram now completely normal patient asymptomatic flu test negative COVID test negative. Cleared for discharge by Dr. Ramírez patient wants to go home discharged home no new meds he will follow up with his primary DrWily Advised to come back to the ER if any symptoms worsen Consults/Reason for consult Cardiology Dr. Harper Ramírez Operations or Procedures Echocardiogram Condition at Discharge: Fair Final Diagnosis/Problems List Asymptomatic bradycardia heart rate of 40: TSH normal Consult for Dr. Ramírez treated, patient has had multiple cardiac workups for bradycardia stress test at [facility] recently was negative Dr. Ramírez cleared for discharge, no further cardiac workup COPD Marijuana abuse: Counseling Flu test negative COVID test negative Discharge Disposition: Home Discharge Instruct/Medications Diet: Cardiac 2g Na,low cholest Activity: Light activity Follow Up/Referral: Follow up with the primary Dr Return to ER if any symptoms worsen Medications: none Scheduled Albuterol (Albuterol), Q6HR, (Reported) Methylprednisolone (Medrol Dosepak), 4 MG PO UD Tiotropium [place] Monohydrate (Spiriva Handihaler), 18 MCG IN DAILY Scheduled PRN Albuterol Sulfate (Albuterol Sulfate Hfa), 108 MCG IN Q4HP PRN 35 (Time taken for discharge summary 35 minutes) Discharge Statement: "Patient was advised to return to the ER or call 911 if any headaches, dizziness, shortness of breath, chest pain, abdominal pain, bleeding, fevers, or worsening of medical condition. Patient was counseled about treatment plan, medications, possible side effects, patientverbalized understanding. All questions were answered to the best of my ability. This discharge took greater then 30 minutes in planning, reviewing documentation, counseling the patient, and discussing with other team members." ASSESSMENT ASSESSMENT Hospital Course Uneventful Assessment Asymptomatic bradycardia heart rate of 40: TSH normal Consult for Dr. Ramírez treated, patient has had multiple cardiac workups for bradycardia stress test at [facility] recently was negative Dr. Ramírez cleared for discharge, no further cardiac workup COPD Marijuana abuse: Counseling Flu test negative COVID test negative Date of Service: Dec 22, 2024 Billing Provider: YONATHAN PETERSON MD Common Visit Codes: [id number] DISCH DAY >30min YONATHAN PETERSON MD Dec 22, 2024 08:27
--- NOTE | 2024-12-22 21:42 | DVHPN2 ---
Progress Note - Dictate Date Seen: Dec 22, 2024 Medical Necessity Reason Pt with a Central, PICC or Fol: No Subjective Patient was seen and evaluated in follow up. No overnight events. Echocardiogram showed an EF of 65%. Patient is cardiac stable for discharge. Telemetry reviewed. vital signs Vital Sign Date Time Temp Pulse Resp B/P (MAP) Pulse Ox O2 Delivery O2 Flow Rate FiO2 12/22/24 10:00 98 Room Air* 0 21 12/22/24 08:57 40 18 129/58 (81) 12/22/24 08:55 97.8 97.8 Total Intake and Output 12/21/24 12/21/24 12/22/24 15:00 23:00 07:00 Intake Total 600 ml 800 ml Output Total 1 ml Balance 599 ml 800 ml objective GENERAL: Alert and oriented x 3. No acute distress. EYES: PERRL, EOMI. Anicteric. HENT: Moist mucous membranes. LUNGS: Clear to auscultation bilaterally. CARDIOVASCULAR: Regular rate and rhythm. ABDOMEN: Soft, nontender and nondistended. EXTREMITIES: No edema. NEUROLOGIC: No focal neurological deficits. SKIN: Warm, dry. laboratory and microbiology Laboratory Tests 12/21/24 05:45 Test 12/21/24 05:45 Range/Units Serum Glucose 94 74-106 mg/dL Problem List Marked sinus bradycardia- asymptomatic. Asthma/COPD. Chronic heavy ETOH use. Assessment/Plan Continued all current supportive medical care. Nitro SL. GI prophylactics. Nebulized breathing treatments. Morphine for pain management. Additional plan as per the hospital course. Plan discussed with: Patient JUAN LUIS CANALES MD Dec 22, 2024 13:46
--- NOTE | 2024-12-23 09:41 | ECG ---
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
== END 2024-12-22 10:45 | disposition home or self-care (01) | DRG 310 ==
LOC: ER 10:22 → EDBD 10:22 → OVERFLOW 12:37 → TELE-CENTR 22:01
PROVIDERS: ADMIT Student in an Organized Health Care Education/Training Program; ATTEND Specialist
DX: R00.1 Bradycardia, unspecified (principal); F10.10 Alcohol abuse, uncomplicated; F12.10 Cannabis abuse, uncomplicated; J44.89 Other specified chronic obstructive pulmonary disease; Z20.822 Contact with and (suspected) exposure to COVID-19; R53.1 Weakness; Z82.5 Family history of asthma and other chronic lower respiratory diseases; Z82.49 Family history of ischemic heart disease and other diseases of the circulatory system; Z71.51 Drug abuse counseling and surveillance of drug abuser; Z79.899 Other long term (current) drug therapy; T40.5X5A Adverse effect of cocaine, initial encounter; Y92.89 Other specified places as the place of occurrence of the external cause
CPT/HCPCS: 36415; 36600; 71045; 80048; 80053; 80307; 81001; 82805; 83735; 83880; 84443; 84484; 85025; 85379; 87040; 87086; 87426; 87804; 93005; 93306; 94640; 99291; G0378; J2470